=== PATIENT | male | born 1975 | race Two or more races ===

== ENCOUNTER 2016-09-11 18:31 | Inpatient (IN) | payer MEDICAID ==
[~2016-09-11] VITALS: Ht 177.8 cm; Wt 98.3 kg
[2016-09-11] MEDS ORDERED: MORPHINE SULFATE 4 MG/ML SYRG IV ONE (20:00)
[2016-09-11] MEDS ORDERED: ONDANSETRON HCL 4 MG/2 ML VIAL IV ONE (20:00)
[2016-09-11] MEDS ORDERED: hydrALAZINE HCL 20 MG/ML VL IV ONE (20:00)
[2016-09-11 20:09] LABS: Basophils # (auto) 0 uL; Basophils % (auto) 0.5 % (0.0-2.0); Eosinophils # (auto) 0.1 uL; Eosinophils % (auto) 0.8 % (0.0-7.0); Hemoglobin 14.2 g/dL (13.5-17.5); Lymphocytes # (auto) 1.3 uL; Mean Corpuscular Hemoglobin 27.6 pg (28.0-32.0); Mean Corpuscular Hgb Conc. 33.1 g/dL (32.0-36.0); Mean Corpuscular Volume 83.6 fL (80.0-100.0); Mean Platelet Volume 7.4 fL (7.4-10.4); Monocytes # (auto) 0.4 uL; Monocytes % (auto) 4.4 % (0.0-12.0); Neutrophils # (auto) 8.2 uL; Neutrophils % (auto) 81.3 % (37.0-80.0); Platelet Count (auto) 361 10^3/uL (140-450); Red Cell Distribution Width 14.6 % (11.6-16.0); White Blood Cell 10.1 10^3/uL (4.4-10.8)
[2016-09-11 20:19] LABS: INR 0.96 (0.9-1.15); Partial Thromboplastin Time 27.7 sec (22.64-33.71); Prothrombin Time 10.4 sec (9.37-12.3)
[2016-09-11 20:30] LABS: Albumin 3.5 g/dL (3.4-5.0); Alkaline Phosphatase 74 U/L (45-117); Anion Gap 6 (5-15); Aspartate Aminotransferase 25 U/L (15-37); BUN/Creatinine Ratio 15.9; Bilirubin, Total 0.5 mg/dL (0.2-1.0); Blood Urea Nitrogen 13 mg/dL (7-18); Calcium 8.9 mg/dL (8.5-10.1); Carbon Dioxide 28 mmol/L (21-32); Chloride 101 mmol/L (98-107); GFR African American 135 mL/min; GFR Non-African American 112 mL/min; Glucose 106 mg/dL (74-106); Magnesium 2.5 mg/dL (1.6-2.6); Potassium 3.9 mmol/L (3.5-5.1); Sodium 135 mmol/L (136-145)
[2016-09-11 21:20] LABS: Urine Bilirubin Negative (Negative); Urine Blood Negative /uL (Negative); Urine Color Yellow (Yellow); Urine Glucose Normal (Normal); Urine Ketone Negative (Negative); Urine Mucus FEW (None Seen); Urine Nitrite Negative (Negative); Urine RBC 1 /hpf (0 - 3); Urine Squamous Epithelial Cell FEW /hpf (<5); Urine Urobilinogen Normal (Negative)
[2016-09-11] MEDS ORDERED: MORPHINE SULF INJ 2 MG/ML SYRINGE 1ML IV PRN ×2 (22:30)
[2016-09-11] MEDS ORDERED: ONDANSETRON HCL 4 MG/2 ML VIAL IV PRN (22:30)
[2016-09-11] MEDS ORDERED: NITROGLYCERIN 0.4 MG SL TAB SL PRN (22:30)
[2016-09-11] MEDS ORDERED: LABETALOL HCL 5 MG/ML 4ML SYRINGE IV ONE (22:30)
[2016-09-11] MEDS ORDERED: DOCUSATE SOD 100 MG CAP PO PRN (22:30)
[2016-09-11] MEDS: SODIUM CHLORIDE 0.9% 1,000 ML IV SCH (22:49)
[2016-09-12] VITALS (7 sets, daily range): BP systolic 120–147; BP diastolic 77–102
[2016-09-12] MEDS: HYDROcodone-ACET 5/325MG TAB PO PRN ×5 (00:23→21:12)
[2016-09-12] MEDS: cloNIDine HCL 0.1 MG TAB PO SCH ×2 (10:00→22:12)
[2016-09-12] MEDS: SODIUM CHLORIDE 0.9% 1,000 ML IV SCH (16:53)
[2016-09-13] MEDS: HYDROcodone-ACET 5/325MG TAB PO PRN ×2 (01:48→11:30)
[2016-09-13 05:00] VITALS: BP 143/99
[2016-09-13] MEDS: SODIUM CHLORIDE 0.9% 1,000 ML IV SCH (07:42)
[2016-09-13] MEDS ORDERED: METO25TA62 PO (08:54)
[2016-09-13 09:00] VITALS: BP 143/82
[2016-09-13 09:52] VITALS: BP 147/87
[2016-09-13] MEDS: cloNIDine HCL 0.1 MG TAB PO SCH (10:00)
[2016-09-13 12:22] VITALS: BP 143/82
== END 2016-09-13 12:22 | disposition home or self-care (01) | DRG 199 ==
LOC: EDBD 18:31 → ER 18:38 → TELE 18:39 → TELE-EAST 23:41
PROVIDERS: ADMIT Emergency Medicine; ATTEND Internal Medicine
DX: I16.0 Hypertensive urgency (principal); F15.23 Other stimulant dependence with withdrawal; I10 Essential (primary) hypertension; F32.9 Major depressive disorder, single episode, unspecified; F17.210 Nicotine dependence, cigarettes, uncomplicated; Z91.14 Patient's other noncompliance with medication regimen; Z88.1 Allergy status to other antibiotic agents; Z71.89 Other specified counseling
CPT/HCPCS: 36415; 70450; 80053; 80307; 81001; 83735; 84484; 85025; 85610; 85730; 94761; 96374; 96375; J2405; J3490